=== PATIENT | male | born 1975 ===

== ENCOUNTER 2021-05-08 12:52 | Observation (INO) | payer SELFPAY ==
[~2021-05-08] VITALS: Ht 165 cm; Wt 82.1 kg
--- NOTE | 2021-05-08 14:49 | ED GI ---
General Chief Complaint: Abdominal/GI Problems Stated Complaint: UNABLE TO URINATE/CONSTIPATED Source of Information: Patient Exam Limitations: No Limitations (SONIYA SALEEM APRN) History of Present Illness Date Seen by Provider: May 08, 2021 Time Seen by Provider: 14:48 Initial Comments To ER with reports of inability to urinate or have a bowel movement. Constipated since Sunday of this week. Also has left lower abdominal pain. Timing/Duration: 1-2 Days Severity/Quality: Moderate Location: LLQ Radiation: No Radiation Activities at Onset: None Associated Symptoms: Denies Symptoms (SONIYA SALEEM APRN) Allergies and Home Medications Allergies Coded Allergies: No Known Drug Allergies (Unverified , 05/08/21) Patient Home Medication List Home Medication List Reviewed: Yes (SONIYA SALEEM APRN) No Active Prescriptions or Reported Meds Review of Systems Review of Systems Constitutional: see HPI EENTM: No Symptoms Reported Respiratory: No Symptoms Reported Cardiovascular: No Symptoms Reported Gastrointestinal: See HPI Genitourinary: No Symptoms Reported Musculoskeletal: no symptoms reported Skin: no symptoms reported Psychiatric/Neurological: No Symptoms Reported Endocrine: No Symptoms Reported Hematologic/Lymphatic: No Symptoms Reported (SONIYA SALEEM APRN) Physical Exam Vital Signs Vital Signs - First Documented 05/08/21 14:46 Temp 36.3 Pulse 98 Resp 18 B/P (MAP) 138/80 (99) Pulse Ox 97 (CHARLYLIZ K DO) Vital Signs Capillary Refill : (SONIYA SALEEM APRN) Height/Weight/BMI Height: '" Weight: lbs. oz. kg; BMI Method: General Appearance: WD/WN, no apparent distress Neck: non-tender, full range of motion Respiratory: no respiratory distress, no accessory muscle use Cardiovascular: regular rate, rhythm, no murmur Gastrointestinal: normal bowel sounds, non tender, soft Extremities: normal range of motion, non-tender, normal inspection Neurologic/Psychiatric: alert, normal mood/affect, oriented x 3 Skin: normal color, warm/dry (SONIYA SALEEM APRN) Progress/Results/Core Measures Results/Orders Lab Results Laboratory Tests Test 05/08/21 15:26 05/08/21 15:28 Range/Units White Blood Count 15.0 H 4.3-11.0 10^3/uL Red Blood Count 4.61 4.30-5.52 10^6/uL Hemoglobin 13.8 13.3-17.7 g/dL Hematocrit 41 40-54 % Mean Corpuscular Volume 88 80-99 fL Mean Corpuscular Hemoglobin 30 25-34 pg Mean Corpuscular Hemoglobin Concent 34 32-36 g/dL Red Cell Distribution Width 11.6 10.0-14.5 % Platelet Count 198 130-400 10^3/uL Mean Platelet Volume 11.5 9.0-12.2 fL Immature Granulocyte % (Auto) 1 % Neutrophils (%) (Auto) 85 H 42-75 % Lymphocytes (%) (Auto) 6 L 12-44 % Monocytes (%) (Auto) 8 0-12 % Eosinophils (%) (Auto) 1 0-10 % Basophils (%) (Auto) 0 0-10 % Neutrophils # (Auto) 12.8 H 1.8-7.8 10^3/uL Lymphocytes # (Auto) 0.8 L 1.0-4.0 10^3/uL Monocytes # (Auto) 1.2 H 0.0-1.0 10^3/uL Eosinophils # (Auto) 0.1 0.0-0.3 10^3/uL Basophils # (Auto) 0.0 0.0-0.1 10^3/uL Immature Granulocyte # (Auto) 0.1 0.0-0.1 10^3/uL Neutrophils % (Manual) 90 % Lymphocytes % (Manual) 4 % Monocytes % (Manual) 5 % Eosinophils % (Manual) 0 % Basophils % (Manual) 0 % Band Neutrophils 1 % Blood Morphology Comment NORMAL Sodium Level 129 L 135-145 MMOL/L Potassium Level 4.0 3.6-5.0 MMOL/L Chloride Level 97 L 98-107 MMOL/L Carbon Dioxide Level 22 21-32 MMOL/L Anion Gap 10 5-14 MMOL/L Blood Urea Nitrogen 8 7-18 MG/DL Creatinine 0.98 0.60-1.30 MG/DL Estimat Glomerular Filtration Rate 83 BUN/Creatinine Ratio 8 Glucose Level 606 *H 70-105 MG/DL Mean Blood Glucose 344 H <=126 mg/dL Hemoglobin A1c 13.6 H 4.0-5.6 % Calcium Level 8.7 8.5-10.1 MG/DL Urine Color YELLOW Urine Clarity CLEAR Urine pH 6.5 5-9 Urine Specific [place] <=1.005 1.016-1.022 Urine Protein 1+ H NEGATIVE Urine Glucose (UA) 3+ H NEGATIVE Urine Ketones NEGATIVE NEGATIVE Urine Nitrite NEGATIVE NEGATIVE Urine Bilirubin NEGATIVE NEGATIVE Urine Urobilinogen 0.2 < = 1.0 MG/DL Urine Leukocyte Esterase NEGATIVE NEGATIVE Urine RBC (Auto) 1+ H NEGATIVE Urine RBC 2-5 H /HPF Urine WBC NONE /HPF Urine Crystals NONE /LPF Urine Bacteria NEGATIVE /HPF Urine Casts NONE /LPF Urine Mucus NEGATIVE /LPF Urine Culture Indicated NO (LIZ PARKS DO) Vital Signs/I&O 05/08/21 14:46 Temp 36.3 Pulse 98 Resp 18 B/P (MAP) 138/80 (99) Pulse Ox 97 (LIZ PARKS DO) Departure Communication (Admissions) Family Conversation [id number] has a normal appearance without hemorrhoid no induration or erythema or fluctuance. There is some fat stranding on CT to this location though. The perineum is also without induration or erythema and nontender to palpation. Scrotum is normal without crepitus or induration of the scrotal skin. Certainly no Xiomara's gangrene. He does actually report that he has had some fevers for the past 2 to 3 days and has been dizzy for the past week. He has never been told that he is diabetic. We left a Florez catheter in place and we have about 1300 mL of clear yellow urine out without clot or apparent hematuria. NAME: RAFIQ GARCIA [facility] REC#: [id number] PT STATUS: REG ER : 1975 PHYSICIAN: SONIYA SALEEM APRN ADMIT DATE: 05/08/21/ER Signed Date of Exam:05/08/21 CT ABDOMEN/PELVIS WO EXAMINATION: CT abdomen and pelvis without contrast. TECHNIQUE: Multiple contiguous axial images were obtained through the abdomen and pelvis without the use of intravenous contrast. All CT scans use one or more of the following dose optimizing techniques: automated exposure control, MA and/or KvP adjustment based on patient size and exam type or iterative reconstruction. HISTORY: Left lower abdominal pain, rectal pain, COMPARISON: None available. FINDINGS: Lung bases: Atelectasis or groundglass opacities in the lung bases. Solid organs: The liver is normal. The gallbladder is surgically absent. There is no biliary ductal dilation. Pancreas is normal. Spleen is normal. Adrenal glands are normal. The kidneys are normal without visualized calculus or hydronephrosis. Bowel: The stomach and small bowel are normal without obstruction. The colon and appendix are normal. Peritoneum: There is no intraperitoneal free fluid or free air. No suspicious lymphadenopathy. Vasculature: Normal without aneurysm. Musculoskeletal: No suspicious osseous lesion or compression fracture. There is mild fat stranding seen within the perineum. Loculated fluid collection. Pelvis: The prostate gland is normal. The urinary bladder is distended. IMPRESSION: 1. No acute abnormality in the abdomen or pelvis. 2. Mild fat stranding within the perineum which can be seen with infectious process or cellulitis. No loculated fluid collection. 3. Atelectasis or atypical infection within the lung bases. Dictated by: Dictated on workstation # [id number] Dict: 05/08/21 1512 Trans: 05/08/21 1523 [facility] [id number] Interpreted by: YANETH SMITH DO Electronically signed by: YANETH SMITH DO 05/08/21 1523 (SONIYA SALEEM APRN) Impression Primary Impression: Proctitis Additional Impression: Diabetes mellitus, new onset Disposition: ADMITTED INPATIENT Condition: Stable Admissions Decision to Admit Reason: Admit from ER (General) Decision to Admit/Date: May 08, 2021 Time/Decision to Admit Time: 16:16 (SONIYA SALEEM APRN) Departure-Patient Inst. Referrals: NO,LOCAL PHYSICIAN (PCP/Family) Primary Care Physician Scripts No Active Prescriptions or Reported Meds ATTENDING PHYSICIAN NOTE: I WAS PHYSICALLY PRESENT ER PHYSICIAN WHEN THIS PATIENT WAS IN ER, BUT I WAS NOT INVOLVED IN ANY DECISION MAKING OR ANY CARE OF THIS PATIENT. (LIZ PARKS DO) SONIYA SALEEM APRN May 08, 2021 14:49 LIZ PARKS DO May 11, 2021 04:22
[2021-05-08] MEDS ORDERED: LIDOCAINE UROJET 2% GEL 10 ML PKG TOP ONE (15:15)
[2021-05-08] MEDS ORDERED: LIDOCAINE UROJET 2% GEL 10 ML PKG ONE (15:17)
--- NOTE | 2021-05-08 15:20 | Diagnostic Imaging Report ---
EXAMINATION: CT abdomen and pelvis without contrast. TECHNIQUE: Multiple contiguous axial images were obtained through the abdomen and pelvis without the use of intravenous contrast. All CT scans use one or more of the following dose optimizing techniques: automated exposure control, MA and/or KvP adjustment based on patient size and exam type or iterative reconstruction. HISTORY: Left lower abdominal pain, rectal pain, COMPARISON: None available. FINDINGS: Lung bases: Atelectasis or groundglass opacities in the lung bases. Solid organs: The liver is normal. The gallbladder is surgically absent. There is no biliary ductal dilation. Pancreas is normal. Spleen is normal. Adrenal glands are normal. The kidneys are normal without visualized calculus or hydronephrosis. Bowel: The stomach and small bowel are normal without obstruction. The colon and appendix are normal. Peritoneum: There is no intraperitoneal free fluid or free air. No suspicious lymphadenopathy. Vasculature: Normal without aneurysm. Musculoskeletal: No suspicious osseous lesion or compression fracture. There is mild fat stranding seen within the perineum. Loculated fluid collection. Pelvis: The prostate gland is normal. The urinary bladder is distended. IMPRESSION: 1. No acute abnormality in the abdomen or pelvis. 2. Mild fat stranding within the perineum which can be seen with infectious process or cellulitis. No loculated fluid collection. 3. Atelectasis or atypical infection within the lung bases. Dictated by: Dictated on workstation # [id number]
[2021-05-08 15:34] LABS: BASOPHILS % (AUTO) 0 % (0-10); EOSINOPHILS # (AUTO) 0.1 10^3/uL (0.0-0.3); EOSINOPHILS % (AUTO) 1 % (0-10); HEMATOCRIT 41 % (40-54); HEMOGLOBIN 13.8 g/dL (13.3-17.7); LYMPHOCYTES # (AUTO) 0.8 10^3/uL (1.0-4.0); LYMPHOCYTES % (AUTO) 6 % (12-44); MEAN CORPUSCULAR HEMOGLOBIN 30 pg (25-34); MEAN CORPUSCULAR HGB CONC 34 g/dL (32-36); MEAN CORPUSCULAR VOLUME 88 fL (80-99); MEAN PLATELET VOLUME 11.5 fL (9.0-12.2); MONOCYTES # (AUTO) 1.2 10^3/uL (0.0-1.0); MONOCYTES % (AUTO) 8 % (0-12); NEUTROPHILS # (AUTO) 12.8 10^3/uL (1.8-7.8); NEUTROPHILS % (AUTO) 85 % (42-75); PLATELET COUNT 198 10^3/uL (130-400)
[2021-05-08 15:36] LABS: BILIRUBIN,URINE NEGATIVE (NEGATIVE); CLARITY,URINE CLEAR; COLOR,URINE YELLOW; GLUCOSE, URINE (UA) 3+ (NEGATIVE); KETONES,URINE NEGATIVE (NEGATIVE); LEUKOCYTE ESTERASE ,URINE NEGATIVE (NEGATIVE); NITRITE,URINE NEGATIVE (NEGATIVE); PH,URINE 6.5 (5-9); PROTEIN,URINE 1+ (NEGATIVE)
[2021-05-08 15:43] LABS: BACTERIA,URINE NEGATIVE /HPF
[2021-05-08 15:44] LABS: CALCIUM 8.7 MG/DL (8.5-10.1)
[2021-05-08 15:48] LABS: CREATININE SERUM 0.98 MG/DL (0.60-1.30)
[2021-05-08] MEDS ORDERED: inSUlin (REGULAR) HUMAN 1 UNIT/0.01 ML (CHARGE PER UNIT) IV ONE (16:30)
[2021-05-08] MEDS ORDERED: PIPERACILLIN SODIUM/TAZOBACTAM 4.5 GM in NS (IVPB) 100 ML IV ONE (16:30)
[2021-05-08 16:42] LABS: BAND NEUTROPHILS 1 %; BASOPHILS % (MANUAL) 0 %; EOSINOPHILS % (MANUAL) 0 %; LYMPHOCYTES % (MANUAL) 4 %; MONOCYTES % (MANUAL) 5 %; NEUTROPHILS % (MANUAL) 90 %; RBC MORPH NORMAL
[2021-05-08] MEDS: LACTATED RINGERS 1,000 ML IV SCH ×2 (16:58→19:00)
[2021-05-08 18:14] VITALS: BP 157/100
[2021-05-08 20:12] VITALS: BP 136/80
[2021-05-08] MEDS: HYDROcodone/APAP 5 MG/325 MG (LORTAB) TAB PO PRN (20:39)
[2021-05-08] MEDS ORDERED: ONDANSETRON 4 MG/2 ML (SDV) Z0FRAN IV PRN (20:45)
[2021-05-08] MEDS: inSUlin ASPART (NovoLOG) 1 UNIT/0.01 ML (CHARGE PER UNIT) SC SCH (21:31)
[2021-05-08] MEDS: PIPERACILLIN SODIUM/TAZOBACTAM 4.5 GM in NS (IVPB) 100 ML IV SCH (22:17)
[2021-05-09] VITALS (7 sets, daily range): BP systolic 95–140; BP diastolic 59–90
[2021-05-09] MEDS: PIPERACILLIN SODIUM/TAZOBACTAM 4.5 GM in NS (IVPB) 100 ML IV SCH ×3 (06:13→21:23)
[2021-05-09] MEDS: metFORMIN 500 MG (GLUCOPHAGE) TAB PO SCH (06:13)
[2021-05-09] MEDS: inSUlin ASPART (NovoLOG) 1 UNIT/0.01 ML (CHARGE PER UNIT) SC SCH ×4 (06:13→21:22)
--- NOTE | 2021-05-09 07:53 | Consultation - Surgery ---
JAIEDUINARABELLA ENCARNACION 05/09/21 0753: History of Present Illness History of Present Illness Patient Consulted On(kenna/time) 05/09/21 07:44 Date Seen by Provider: May 09, 2021 Time Seen by Provider: 07:13 History of Present Illness Pt is primarily Sami speaking. 46yoHM who presents to the ED last night with gradual on set of lower abdominal pain and lack of urination. He states that nothing seems to make it better or worse. He does confirm having a fever for the last few days along with dizzy spells. He was previously unaware of his DM dx, he arrived in the ER with glucose of 606 Pt report having BM x2 yesterday - non-bloody His urinary catheter is in place and produces yellow - non-blood, non-purulent urine. He denies any N/V. Allergies and Home Medications Allergies Coded Allergies: No Known Drug Allergies (Unverified , 05/08/21) Past Ijaimzo-Rczpus-Lirpyu Hx Patient Social History Alcohol Use?: Yes Have you traveled recently?: No Surgeries Surgeries: Adenoidectomy Family Medical History Significant Family History: No Pertinent Family Hx Review of Systems-General Constitutional: No chills, No diaphoresis, No fever, No malaise EENTM: No hearing loss, No ear pain, No vision loss, No hoarseness, No mouth pain Respiratory: No cough, No dyspnea on exertion, No orthopnea, No short of breath Cardiovascular: No chest pain, No edema, No Hx of Intervention Gastrointestinal: No abdominal pain, No diarrhea, No hematemesis, No melena, No nausea, No vomiting Genitourinary: No decreased output, No discharge, No dysuria, No pain Musculoskeletal: No back pain, No joint pain, No muscle pain, No neck pain Skin: No change in color, No change in hair/nails, No dryness, No pruritus, No rash Psychiatric/Neurological: Denies Headache, Denies Numbness, Denies Tingling, Denies Tremors Physical Exam-General Problems Physical Exam Vital Signs Vital Signs - First Documented 05/08/21 05/08/21 14:46 18:14 Temp 36.3 Pulse 98 Resp 18 B/P (MAP) 138/80 (99) Pulse Ox 97 O2 Delivery Room Air Capillary Refill : Less Than 3 Seconds General Appearance: WD/WN, no apparent distress Eyes: Bilateral Eye PERRL, Bilateral Eye EOMI HEENT: PERRL/EOMI, pharynx normal Neck: non-tender, full range of motion, supple Respiratory: chest non-tender, lungs clear, normal breath sounds, no respiratory distress, no accessory muscle use Cardiovascular: regular rate, rhythm, no edema, no gallop, no murmur Peripheral Pulses: 2+ Radial Pulses (R), 2+ Radial Pulses (L) Gastrointestinal: normal bowel sounds, non tender, soft, no organomegaly, no pulsatile mass Back: no CVA tenderness, no vertebral tenderness Extremities: normal range of motion, no pedal edema, no calf tenderness, normal capillary refill Neurologic/Psychiatric: electronics instructor II-XII nml as tested, alert, normal mood/affect Reflexes: 2+ Bicep (R), 2+ Bicep (L) Skin: normal color, warm/dry Lymphatic: no adenopathy (Cervical and axillary) Data Review Labs Laboratory Tests 05/08/21 15:26: White Blood Count 15.0H, Red Blood Count 4.61, Hemoglobin 13.8, Hematocrit 41, Mean Corpuscular Volume 88, Mean Corpuscular Hemoglobin 30, Mean Corpuscular Hemoglobin Concent 34, Red Cell Distribution Width 11.6, Platelet Count 198, Mean Platelet Volume 11.5, Immature Granulocyte % (Auto) 1, Neutrophils (%) (Auto) 85H, Lymphocytes (%) (Auto) 6L, Monocytes (%) (Auto) 8, Eosinophils (%) (Auto) 1, Basophils (%) (Auto) 0, Neutrophils # (Auto) 12.8H, Lymphocytes # (Auto) 0.8L, Monocytes # (Auto) 1.2H, Eosinophils # (Auto) 0.1, Basophils # (Auto) 0.0, Immature Granulocyte # (Auto) 0.1, Neutrophils % (Manual) 90, Lymphocytes % (Manual) 4, Monocytes % (Manual) 5, Eosinophils % (Manual) 0, Basophils % (Manual) 0, Band Neutrophils 1, Blood Morphology Comment NORMAL, Sodium Level 129L, Potassium Level 4.0, Chloride Level 97L, Carbon Dioxide Level 22, Anion Gap 10, Blood Urea Nitrogen 8, Creatinine 0.98, Estimat Glomerular Filtration Rate 83, BUN/Creatinine Ratio 8, Glucose Level 606*H, Calcium Level 8.7 05/08/21 15:28: Urine Color YELLOW, Urine Clarity CLEAR, Urine pH 6.5, Urine Specific [place] <=1.005, Urine Protein 1+H, Urine Glucose (UA) 3+H, Urine Ketones NEGATIVE, Urine Nitrite NEGATIVE, Urine Bilirubin NEGATIVE, Urine Urobilinogen 0.2, Urine Leukocyte Esterase NEGATIVE, Urine RBC (Auto) 1+H, Urine RBC 2-5H, Urine WBC NONE, Urine Crystals NONE, Urine Bacteria NEGATIVE, Urine Casts NONE, Urine Mucus NEGATIVE, Urine Culture Indicated NO 05/08/21 17:46: Glucometer 211H 05/08/21 21:19: Glucometer 293H 05/09/21 06:07: Glucometer 212H Radiology [facility] [place] [place] NAME: RAFIQ GARCIA [facility] REC#: [id number] PT STATUS: REG ER : 1975 PHYSICIAN: SONIYA SALEEM APRN ADMIT DATE: 05/08/21/ER Signed Date of Exam:05/08/21 CT ABDOMEN/PELVIS WO EXAMINATION: CT abdomen and pelvis without contrast. TECHNIQUE: Multiple contiguous axial images were obtained through the abdomen and pelvis without the use of intravenous contrast. All CT scans use one or more of the following dose optimizing techniques: automated exposure control, MA and/or KvP adjustment based on patient size and exam type or iterative reconstruction. HISTORY: Left lower abdominal pain, rectal pain, COMPARISON: None available. FINDINGS: Lung bases: Atelectasis or groundglass opacities in the lung bases. Solid organs: The liver is normal. The gallbladder is surgically absent. There is no biliary ductal dilation. Pancreas is normal. Spleen is normal. Adrenal glands are normal. The kidneys are normal without visualized calculus or hydronephrosis. Bowel: The stomach and small bowel are normal without obstruction. The colon and appendix are normal. Peritoneum: There is no intraperitoneal free fluid or free air. No suspicious lymphadenopathy. Vasculature: Normal without aneurysm. Musculoskeletal: No suspicious osseous lesion or compression fracture. There is mild fat stranding seen within the perineum. Loculated fluid collection. Pelvis: The prostate gland is normal. The urinary bladder is distended. IMPRESSION: 1. No acute abnormality in the abdomen or pelvis. 2. Mild fat stranding within the perineum which can be seen with infectious process or cellulitis. No loculated fluid collection. 3. Atelectasis or atypical infection within the lung bases. Dictated by: Dictated on workstation # [id number] Dict: 05/08/21 1512 Trans: 05/08/[address] [facility] [id number] Interpreted by: YANETH SMITH DO Electronically signed by: YANETH SMITH DO 05/08/21 1523 Assessment/Plan Assessment/Plan Assessment/Plan New onset T2DM Constipation Rectal pain Urinary retention management and education regarding new T2DM diagnosis Fluid resuscitation and empiric abx Conservative management at this time. Pt is urinating and passing BM without alarm signs to suggest surgical intervention is indicated. CT is non-contributory except for perineal fat stranding with is consistent with inflammation. Plan for outpatient colonoscopy NEVIN BOWMAN DO 05/09/21 1357: History of Present Illness History of Present Illness History of Present Illness Patient is a 46-year-old male who presented to emergency department with inability to urinate and also some lower abdominal pain. Patient states he is having difficulty urinating and having bowel movement. Patient's had fever for couple of days. Patient states that nothing was seems to make things better. Nothing was seems to make things worse that he knows of. Patient has never had any issues with bowels or urinating before. He had 2 bowel movements yesterday that were nonbloody. He was found to have elevated blood glucose but reports he is not a diabetic. Patient states that his pain was a 10 out of 10 when he in itially came in now he states is significantly better and he rates it at a 4 out of 10. He had a Good placed. He currently states he is feeling significantly better. He is on Zosyn. He had a CT scan demonstrating faster and around the perineum consistent with either infectious or cellulitis. Allergies and Home Medications Allergies Coded Allergies: No Known Drug Allergies (Unverified , 05/08/21) Patient Home Medication List Home Medication List Reviewed: Yes Past Csodubl-Zzonaw-Wyqeom Hx Reviewed Nursing Assessment Reviewed/Agree w Nursing PMH: Yes Family Medical History Significant Family History: No Pertinent Family Hx Review of Systems-General Constitutional: No chills; fever; No malaise EENTM: No hearing loss, No ear pain Respiratory: No cough, No short of breath Cardiovascular: No chest pain, No Hx of Intervention Gastrointestinal: abdominal pain, constipation; No nausea, No vomiting Genitourinary: decreased output; No dysuria Musculoskeletal: No back pain, No joint pain Skin: No change in color, No change in hair/nails, No pruritus, No rash Psychiatric/Neurological: Denies Anxiety, Denies Depressed, Denies Emotional Problems All Other Systems Reviewed Negative Unless Noted: Yes (Negative excepted noted.) Physical Exam-General Problems Physical Exam General Appearance: WD/WN, no apparent distress HEENT: PERRL/EOMI, normal ENT inspection Neck: non-tender, supple Respiratory: chest non-tender, no respiratory distress, no accessory muscle use Cardiovascular: regular rate, rhythm, no JVD Gastrointestinal: non tender, soft Rectal: deferred Genital/Rectal: normal genital exam, other (No evidence of foreign years gangrene or any cellulitis. No palpable fluid collections or tenderness on palpation) Back: no CVA tenderness, no vertebral tenderness Extremities: normal range of motion, normal inspection Neurologic/Psychiatric: alert, normal mood/affect, oriented x 3 Skin: normal color, warm/dry Lymphatic: no adenopathy (Cervical and axillary) Assessment/Plan Assessment/Plan Assessment/Plan New onset T2DM Constipation Rectal pain Urinary retention management and education regarding new T2DM diagnosis Fluid resuscitation and empiric abx Conservative management at this time. Pt with good and passing BM without alarm signs to suggest surgical intervention is indicated. CT is non-contributory except for perineal fat stranding with is consistent with inflammation. Plan for outpatient colonoscopy 8 weeks after resolved. Continue Zosyn Supervisory-Addendum Brief Verification & Attestation Participated in pt care: history, MDM, physical Personally performed: exam, history, MDM, supervision of care Care discussed with: Medical Student Procedures: n/a Results interpretation: Verified all documentation Verification and Attestation of Medical Student E/M Service A medical student performed and documented this service in my presence. I reviewed and verified all information documented by the medical student and made modifications to such information, when appropriate. I personally performed the physical exam and medical decision making. Nevin Bowman, May 09, 2021,13:58 ARABELAL HOLLEY May 09, 2021 07:53 NEVIN BOWMAN DO May 09, 2021 13:57
[2021-05-09] MEDS: LACTATED RINGERS 1,000 ML IV SCH ×4 (07:57→21:22)
[2021-05-09] MEDS: HYDROcodone/APAP 5 MG/325 MG (LORTAB) TAB PO PRN (08:02)
[2021-05-09 09:18] LABS: CALCIUM 8.2 MG/DL (8.5-10.1); CREATININE SERUM 0.85 MG/DL (0.60-1.30); POTASSIUM 3.7 MMOL/L (3.6-5.0)
[2021-05-09] MEDS ORDERED: PIPERACILLIN/TAZO 4.5 GM VIAL (ZOSYN) IV ONE (13:59)
--- NOTE | 2021-05-09 22:48 | History & Physical-Hospitalist ---
History of Present Illness HPI/Chief Complaint Alexander Pedro is a 46 year old male with no known PMH who presented with urinary retention. He was having abdominal pain. He has also had constipation and rectal pain. He denies penile discharge. He has had dysuria. He denies blood in his stools. He denies fevers. He denies shortness of breath and cough. He denies chest pain. He has no history of diabetes. He does not take any medications regularly. Source: patient Exam Limitations: no limitations Date Seen 05/09/21 Time Seen by a Provider: 11:55 Attending Physician Lizbeth Davis MD PCP No,Local Physician Referring Physician Date of Admission May 08, 2021 at 16:32 Home Medications & Allergies Home Medications Reviewed patient Home Medication Reconciliation performed by pharmacy medication reconciliations materials engineering technician and/or nursing. Patients Allergies have been reviewed. Allergies Allergies Coded Allergies No Known Drug Allergies (Zorhowlxto10/26/21) Past Ennfapa-Tsjpzl-Wscvii Hx Patient Social History Tobacco Use?: No Use of E-Cig and/or Vaping dev: No Substance use?: No Alcohol Use?: Yes Alcohol type: Beer Alcohol Frequency: Daily Pt feels they are or have been: No Immunizations Up To Date First/Initial COVID19 Vaccinat: N/A Tetanus Booster (TDap): Unknown Hepatitis A: No Hepatitis B: No Current Status Advance Directives: No Communicates: Verbally Primary Language: Tajik Preferred Spoken Language: Tajik Is interpretation needed?: Yes Implanted or Applied Medical D: None Past Medical History Surgeries: Adenoidectomy Family Medical History No Pertinent Family Hx Review of Systems Constitutional: no symptoms reported EENTM: no symptoms reported Respiratory: no symptoms reported Cardiovascular: no symptoms reported Gastrointestinal: abdominal pain Genitourinary: decreased output; No discharge; dysuria, hesitancy, incontinence Musculoskeletal: no symptoms reported Skin: no symptoms reported Psychiatric/Neurological: No Symptoms Reported Physical Exam Physical Exam Vital Signs Vital Signs - First Documented 05/08/21 05/08/21 14:46 18:14 Temp 36.3 Pulse 98 Resp 18 B/P (MAP) 138/80 (99) Pulse Ox 97 O2 Delivery Room Air Capillary Refill : Less Than 3 Seconds Height, Weight, BMI Height: '" Weight: lbs. oz. kg; 25.96 BMI Method: General Appearance: No Apparent Distress, Obese HEENT: PERRL/EOMI, Pharynx Normal Neck: Normal Inspection, Supple Respiratory: Lungs Clear, Normal Breath Sounds, No Respiratory Distress Cardiovascular: Regular Rate, Rhythm, No Edema, No Murmur Gastrointestinal: Normal Bowel Sounds, Non Tender, Soft Extremity: Normal Inspection, Non Tender, No Pedal Edema Neurologic/Psychiatric: Alert, No Motor/Sensory Deficits, Normal Mood/Affect Skin: Normal Color, Warm/Dry Results Results/Procedures Labs Laboratory Tests 05/08/21 15:26 05/09/21 08:59 Patient resulted labs reviewed. Imaging: Reviewed Imaging Report Assessment/Plan Admission Diagnosis New onset diabetes mellitus Admission Status: Observation Assessment and Plan New onset diabetes mellitus T2DM with hyperglycemia Not in DKA/HHS Sliding scale insulin Levemir Metformin A1C pending Urinary retention BPH Florez in place Flomax Consult urology Proctitis Zosyn Surgery consulted Planning for outpatient colonoscopy Diagnosis/Problems Diagnosis/Problems (1) Diabetes mellitus, new onset Status: Acute (2) Proctitis Status: Acute (3) Urinary retention due to benign prostatic hyperplasia Status: Acute LIZBETH DAVIS MD May 09, 2021 22:48
[2021-05-09] MEDS: TAMSULOSIN 0.4 MG (FLOMAX) CAP PO SCH (23:30)
[2021-05-10 04:40] VITALS: BP 124/81
[2021-05-10] MEDS: LACTATED RINGERS 1,000 ML IV SCH ×3 (05:39→21:38)
[2021-05-10] MEDS: metFORMIN 500 MG (GLUCOPHAGE) TAB PO SCH ×2 (05:40→17:51)
[2021-05-10] MEDS: PIPERACILLIN SODIUM/TAZOBACTAM 4.5 GM in NS (IVPB) 100 ML IV SCH ×3 (05:40→21:38)
[2021-05-10] MEDS: inSUlin ASPART (NovoLOG) 1 UNIT/0.01 ML (CHARGE PER UNIT) SC SCH ×4 (05:42→21:37)
[2021-05-10 06:10] LABS: POTASSIUM 3.2 MMOL/L (3.6-5.0)
[2021-05-10 06:11] LABS: CALCIUM 8.4 MG/DL (8.5-10.1)
[2021-05-10 06:15] LABS: CREATININE SERUM 0.73 MG/DL (0.60-1.30)
--- NOTE | 2021-05-10 07:43 | Progress Note - Surgery ---
ARABELLA HOLLEY 05/10/21 0743: Subjective Date Seen by a Provider: May 10, 2021 Time Seen by a Provider: 06:51 Subjective/Events-last exam Pt is doing well. He does report minimal pain from his rectum, which is unchanged. He states his last BM was Sunday (05/08/21) and was non-bloody. He does not have any urinary pain and Good cath remains in place, clear yellow urine is flowing freely. Pt has been started on flowmax. Review of Systems General: No Chills, No Night Sweats, No Fatigue; Appetite HEENT: No Head Aches, No Eye Pain, No Ear Pain, No Dysphasia, No Sore Throat Pulmonary: No Dyspnea, No Cough, No Pleuritic Chest Pain Cardiovascular: No: Chest Pain, Palpitations, Orthopnea Gastrointestinal: No: Nausea, Vomiting, Abdominal Pain, Diarrhea, Constipation, Melena, Hematochezia Genitourinary: No Dysuria, No Frequency, No Incontinence, No Retention Musculoskeletal: No: neck pain, shoulder pain, back pain, hand pain, leg pain, foot pain Neurological: No: Weakness, Numbness, Change in speech, Seizures Objective Exam Vital Signs Date Time Temp Pulse Resp B/P (MAP) Pulse Ox O2 Delivery O2 Flow Rate FiO2 05/10/21 04:40 36.6 94 16 124/81 (95) 97 Room Air 05/09/21 23:51 36.7 89 16 140/90 (107) 99 Room Air 05/09/21 20:08 37.2 97 16 138/82 (100) 97 Room Air 05/09/21 19:51 Room Air 05/09/21 16:00 37.0 102 16 137/86 (103) 98 Room Air 05/09/21 12:00 37.4 91 18 134/62 (86) 96 Room Air 05/09/21 08:06 97 Room Air 05/09/21 08:00 37.8 107 18 117/59 (78) Room Air I & O 05/10/21 07:00 Intake Total 2104 ml Output Total 3500 ml Balance -1396 ml Capillary Refill : Less Than 3 Seconds General Appearance: No Apparent Distress, WD/WN, Obese HEENT: PERRL/EOMI, Pharynx Normal Neck: Full Range of Motion, Non Tender, Supple Respiratory: Chest Non Tender, Lungs Clear, Normal Breath Sounds, No Accessory Muscle Use, No Respiratory Distress Cardiovascular: Regular Rate, Rhythm, No Edema, No Gallop, No JVD, No Murmur, Normal Peripheral Pulses Peripheral Pulses: 2+ Radial Pulses (R), 2+ Radial Pulses (L) Gastrointestinal: normal bowel sounds, non tender, soft, no organomegaly, no pulsatile mass Extremity: Normal Capillary Refill, Normal Inspection, Non Tender, No Calf Tenderness, No Pedal Edema Neurologic/Psychiatric: Alert, Oriented x3, No Motor/Sensory Deficits, Normal Mood/Affect Skin: Normal Color, Warm/Dry Lymphatic: No Adenopathy (cervical and axillary) Results Lab Laboratory Tests 05/09/21 08:59: Sodium Level 131L, Potassium Level 3.7, Chloride Level 99, Carbon Dioxide Level 22, Anion Gap 10, Blood Urea Nitrogen 10, Creatinine 0.85, Estimat Glomerular Filtration Rate 97, BUN/Creatinine Ratio 12, Glucose Level 246H, Calcium Level 8.2L 05/09/21 11:06: Glucometer 390H 05/09/21 15:31: Glucometer 216H 05/09/21 20:26: Glucometer 224H 05/10/21 05:40: Sodium Level 136, Potassium Level 3.2L, Chloride Level 102, Carbon Dioxide Level 24, Anion Gap 10, Blood Urea Nitrogen 9, Creatinine 0.73, Estimat Glomerular Filtration Rate 116, BUN/Creatinine Ratio 12, Glucose Level 92, Calcium Level 8.4L, Triglycerides Level 89, Cholesterol Level 150, LDL Cholesterol Direct 84, VLDL Cholesterol 18, HDL Cholesterol 51 05/10/21 05:42: Glucometer 90 Assessment/Plan Assessment/Plan Assessment/Plan New onset T2DM Constipation Rectal pain Urinary retention Conservative management at this time. Pt education regarding new T2DM diagnosis Pt with good and passing BM without alarm signs - no surgical intervention is planned at this time. CT indicates perineal fat stranding, consistent with inflammation of the rectum - Plan for outpatient colonoscopy 8 weeks after resolved. Continue Flomax. After three days on Flomax, we will give him a trial of voiding. NEVIN BOWMAN DO 05/11/21 0802: Subjective Subjective/Events-last exam Feeling okay. Less pain. Good in place. Tolerating diet. Denies n/v fever sweats chills shortness of breath or chest pain. Objective Exam General Appearance: No Apparent Distress, WD/WN HEENT: PERRL/EOMI, Normal ENT Inspection Neck: Full Range of Motion, Non Tender Respiratory: Chest Non Tender, No Accessory Muscle Use, No Respiratory Distress Cardiovascular: Regular Rate, Rhythm, No JVD Gastrointestinal: non tender, soft Extremity: Normal Capillary Refill, Normal Inspection, Non Tender Neurologic/Psychiatric: Alert, Oriented x3 Skin: Normal Color, Warm/Dry Lymphatic: No Adenopathy (cervical and axillary) Assessment/Plan Assessment/Plan Assessment/Plan New onset T2DM Constipation Rectal pain Urinary retention DM control. Pt with good and passing BM without difficulty CT indicates perineal fat stranding, consistent with inflammation of the rectum - continue abx- Plan for outpatient colonoscopy 8 weeks after resolved. Continue Flomax. After three days on Flomax, trial of voiding. Supervisory-Addendum Brief Verification & Attestation Participated in pt care: history, MDM, physical Personally performed: exam, history, MDM, supervision of care Care discussed with: Medical Student Procedures: n/a Results interpretation: Verified all documentation Verification and Attestation of Medical Student E/M Service A medical student performed and documented this service in my presence. I reviewed and verified all information documented by the medical student and made modifications to such information, when appropriate. I personally performed the physical exam and medical decision making. Nevin Bowman, May 10, 2021,18:02 ARABELLA HOLLEY May 10, 2021 07:43 NEVIN BOWMAN DO May 11, 2021 08:02
[2021-05-10 08:00] VITALS: BP 143/88
[2021-05-10] MEDS: HYDROcodone/APAP 5 MG/325 MG (LORTAB) TAB PO PRN ×2 (10:02→14:10)
--- NOTE | 2021-05-10 13:23 | CONSULTATION REPORT ---
DATE OF SERVICE: 05/10/2021 ATTENDING PHYSICIAN: Dr. Davila and Miller Waterman DO. SUMMARY: A 46-year-old white man admitted with gradual onset of lower abdominal pain, urinary retention, and some fever. Catheter was inserted, draining yellow clear urine. He was seen by Dr. Waterman, general surgery. He had a CT scan essentially negative. He was admitted with the diagnosis of proctitis and was started on Flomax daily. It is hard to communicate with him because of the language barrier; however, I believe he has prostatitis causing retention. IMPRESSION: Prostatitis and urinary retention. PLAN: Bactrim DS b.i.d. Continue Flomax. After three days on Flomax, we will give him a trial of voiding. CC: Lizbeth Giovanni - requested, unable to deliver. Job ID: [id number] DocumentID: [id number] Dictated Date: 05/10/2021 11:13:09 Class 1 Owner Operator Date: 05/10/2021 13:21:52 Dictated By: TRAV MCCARTNEY MD
[2021-05-10 15:01] VITALS: BP 159/88
[2021-05-10] MEDS: TRIM/SULFAMETH 160/800 (SEPTRA DS) TAB PO SCH (17:51)
[2021-05-10] MEDS: TAMSULOSIN 0.4 MG (FLOMAX) CAP PO SCH (17:52)
--- NOTE | 2021-05-10 17:58 | Progress Note - Hospitalist ---
Subjective HPI/CC On Admission Date Seen by Provider: May 10, 2021 Time Seen by Provider: 11:15 Alexander Pedro is a 46 year old male with no known PMH who presented with urinary retention. He was having abdominal pain. He has also had constipation and rectal pain. He denies penile discharge. He has had dysuria. He denies blood in his stools. He denies fevers. He denies shortness of breath and cough. He denies chest pain. He has no history of diabetes. He does not take any medications regularly. Subjective/Events-last exam He continues to have rectal pain. He has been having bowel movements. He denies blood in his stools. Objective Exam Vital Signs Vital Signs Date Time Temp Pulse Resp B/P (MAP) Pulse Ox O2 Delivery O2 Flow Rate FiO2 05/10/21 15:01 37.0 85 18 159/88 (111) 99 Room Air Capillary Refill : Less Than 3 Seconds General Appearance: No Apparent Distress, Obese Respiratory: Lungs Clear, Normal Breath Sounds, No Respiratory Distress Cardiovascular: Regular Rate, Rhythm, No Edema, No Murmur Gastrointestinal: Normal Bowel Sounds, Non Tender, Soft Extremity: Normal Inspection, Non Tender, No Pedal Edema Neurologic/Psychiatric: Alert, No Motor/Sensory Deficits, Normal Mood/Affect Skin: Normal Color, Warm/Dry Results/Procedures Lab Laboratory Tests 05/10/21 05:40 Patient resulted labs reviewed. Imaging: Reviewed Imaging Report Assessment/Plan Assessment and Plan Assess & Plan/Chief Complaint New onset diabetes mellitus T2DM with hyperglycemia Sliding scale insulin Levemir Metformin A1C 13.6% Urinary retention BPH Prostatitis Florez in place Flomax Bactrim Urology following Obesity DVT prophylaxis: Lovenox Diagnosis/Problems Diagnosis/Problems (1) Diabetes mellitus, new onset Status: Acute (2) Proctitis Status: Acute (3) Urinary retention due to benign prostatic hyperplasia Status: Acute CHRISTINE DAVIS MD May 10, 2021 17:57
[2021-05-10] MEDS ORDERED: ENOXAPARIN 40 MG/0.4 ML (LOVENOX) SYR SC SCH (18:00)
[2021-05-10 20:00] VITALS: BP 151/91
[2021-05-11 00:25] VITALS: BP 131/85
[2021-05-11 04:50] VITALS: BP 125/75
[2021-05-11] MEDS: inSUlin ASPART (NovoLOG) 1 UNIT/0.01 ML (CHARGE PER UNIT) SC SCH ×3 (05:39→16:56)
[2021-05-11] MEDS ORDERED: KCL 20 MEQ TAB (K-DUR) PO SCH (06:00)
[2021-05-11] MEDS ORDERED: MAGNESIUM 1 GM/100 ML IVPB 100 ML IV SCH (06:00)
[2021-05-11] MEDS ORDERED: POTASSIUM CL 10MEQ/50ML IVPB 50 ML IV SCH (06:00)
[2021-05-11 06:03] LABS: HEMATOCRIT 39 % (40-54); HEMOGLOBIN 13.3 g/dL (13.3-17.7); MEAN CORPUSCULAR HEMOGLOBIN 30 pg (25-34); MEAN CORPUSCULAR HGB CONC 35 g/dL (32-36); MEAN CORPUSCULAR VOLUME 87 fL (80-99); PLATELET COUNT 201 10^3/uL (130-400); WHITE BLOOD COUNT 5.6 10^3/uL (4.3-11.0)
[2021-05-11 06:22] LABS: POTASSIUM 3.7 MMOL/L (3.6-5.0)
[2021-05-11 06:24] LABS: CALCIUM 8.5 MG/DL (8.5-10.1)
[2021-05-11 06:28] LABS: CREATININE SERUM 0.76 MG/DL (0.60-1.30)
[2021-05-11 06:30] LABS: MAGNESIUM 2.1 MG/DL (1.6-2.4)
[2021-05-11] MEDS: PIPERACILLIN SODIUM/TAZOBACTAM 4.5 GM in NS (IVPB) 100 ML IV SCH (06:44)
[2021-05-11] MEDS: LACTATED RINGERS 1,000 ML IV SCH ×2 (06:44→14:06)
--- NOTE | 2021-05-11 07:17 | Progress Note - Surgery ---
JAIMEAGHANARABELLA 05/11/21 0717: Subjective Date Seen by a Provider: May 11, 2021 Time Seen by a Provider: 06:51 Subjective/Events-last exam Pt is resting comfortably in bed and doing well. States that he still has very mild rectal pain - no BM since Sunday afternoon. also he is urinating without issue via good cath in place, producing clear yellow urine. He was asking about when he could go home - informed the pt that the good cath will be removed tomorrow and he will have the opportunity to demonstrate voiding, after which he can safely be DC. Pt understands and agrees. Also informed pt that [facility] would like him to follow-up in 8wks for a colonoscopy after the current inflamation resolves. Review of Systems General: No Chills, No Night Sweats, No Fatigue, No Malaise; Appetite HEENT: No Head Aches, No Dysphasia, No Sore Throat Pulmonary: No Dyspnea, No Cough, No Pleuritic Chest Pain Cardiovascular: No: Chest Pain, Orthopnea, Lt Headedness Gastrointestinal: No: Nausea, Vomiting, Abdominal Pain, Diarrhea, Constipation, Melena Genitourinary: No Dysuria, No Frequency, No Hematuria Musculoskeletal: No: neck pain, shoulder pain, back pain Neurological: No: Weakness, Numbness, Change in speech, Seizures Objective Exam Vital Signs Date Time Temp Pulse Resp B/P (MAP) Pulse Ox O2 Delivery O2 Flow Rate FiO2 05/11/21 04:50 37.2 90 16 125/75 (92) 95 Room Air 05/11/21 00:25 36.8 85 16 131/85 (100) 95 Room Air 05/10/21 20:00 37.2 95 16 151/91 (111) 93 Room Air 05/10/21 19:37 Room Air 05/10/21 15:01 37.0 85 18 159/88 (111) 99 Room Air 05/10/21 08:00 Room Air 05/10/21 08:00 37.0 91 18 143/88 (106) 95 Room Air I & O 05/11/21 07:00 Intake Total 3110 ml Output Total 4525 ml Balance -1415 ml Capillary Refill : Less Than 3 Seconds General Appearance: No Apparent Distress, WD/WN HEENT: PERRL/EOMI, Pharynx Normal Neck: Full Range of Motion, Non Tender, Supple Respiratory: Chest Non Tender, Lungs Clear, Normal Breath Sounds, No Accessory Muscle Use, No Respiratory Distress Cardiovascular: Regular Rate, Rhythm, No Edema, No Gallop, No Murmur, Normal Peripheral Pulses Peripheral Pulses: 2+ Radial Pulses (R), 2+ Radial Pulses (L) Gastrointestinal: normal bowel sounds, non tender, soft, no organomegaly, no pulsatile mass Extremity: Normal Capillary Refill, Normal Inspection, Non Tender, No Calf Tenderness, No Pedal Edema Neurologic/Psychiatric: Alert, Oriented x3, No Motor/Sensory Deficits, Normal Mood/Affect Skin: Normal Color, Warm/Dry Lymphatic: No Adenopathy (cervical and axillary) Results Lab Laboratory Tests 05/10/21 10:06: Glucometer 111H 05/10/21 11:34: Glucometer 113H 05/10/21 14:32: Glucometer 213H 05/10/21 20:28: Glucometer 288H 05/11/21 05:33: Glucometer 146H 05/11/21 05:52: White Blood Count 5.6, Red Blood Count 4.45, Hemoglobin 13.3, Hematocrit 39L, Mean Corpuscular Volume 87, Mean Corpuscular Hemoglobin 30, Mean Corpuscular Hemoglobin Concent 35, Red Cell Distribution Width 11.5, Platelet Count 201, Mean Platelet Volume 11.0, Sodium Level 137, Potassium Level 3.7, Chloride Level 105, Carbon Dioxide Level 24, Anion Gap 8, Blood Urea Nitrogen 8, Creatinine 0.76, Estimat Glomerular Filtration Rate 111, BUN/Creatinine Ratio 11, Glucose Level 140H, Calcium Level 8.5, Magnesium Level 2.1 Assessment/Plan Assessment/Plan Assessment/Plan New onset T2DM Constipation Rectal pain Urinary retention Pt education regarding new T2DM diagnosis Continue non-surgical conservative management at this time. - Plan for outpatient colonoscopy 8 weeks after current inflammation is resolved. Continue Flomax. After three days (05/12/21) on Flomax, we will give him a trial of voiding. NEVIN BOWMAN DO 05/11/21 0805: Subjective Subjective/Events-last exam Continues to feel well. Minimal rectal pain. Good in place. Denies n/v fever sweats chills shortness of breath or chest pain. Objective Exam General Appearance: No Apparent Distress, WD/WN HEENT: PERRL/EOMI, Normal ENT Inspection Neck: Non Tender, Supple Respiratory: Chest Non Tender, No Accessory Muscle Use, No Respiratory Distress Cardiovascular: Regular Rate, Rhythm, No JVD Gastrointestinal: non tender, soft Extremity: Non Tender Neurologic/Psychiatric: Alert, Oriented x3, No Motor/Sensory Deficits, Normal Mood/Affect Skin: Normal Color, Warm/Dry Lymphatic: No Adenopathy (cervical and axillary) Assessment/Plan Assessment/Plan Assessment/Plan New onset T2DM Constipation Rectal pain Urinary retention Pt education regarding new T2DM diagnosis Continue non-surgical conservative management at this time. On zosyn - Plan for outpatient colonoscopy 8 weeks after current inflammation is resolved. Continue Flomax. After three days (05/12/21) on Flomax, trial of voiding (Urology). Supervisory-Addendum Brief Verification & Attestation Participated in pt care: history, MDM, physical Personally performed: exam, history, MDM, supervision of care Care discussed with: Medical Student Procedures: n/a Results interpretation: Verified all documentation Verification and Attestation of Medical Student E/M Service A medical student performed and documented this service in my presence. I reviewed and verified all information documented by the medical student and made modifications to such information, when appropriate. I personally performed the physical exam and medical decision making. Nevin Bowman, May 11, 2021,08:05 ARABELLA HOLLEY May 11, 2021 07:17 NEVIN BOWMAN DO May 11, 2021 08:05
[2021-05-11 08:00] VITALS: BP 152/83
[2021-05-11] MEDS: TRIM/SULFAMETH 160/800 (SEPTRA DS) TAB PO SCH ×2 (08:52→16:57)
[2021-05-11] MEDS: metFORMIN 500 MG (GLUCOPHAGE) TAB PO SCH ×2 (08:52→16:55)
[2021-05-11 12:00] VITALS: BP 135/77
[2021-05-11] MEDS ORDERED: SULF1TAB38 PO (13:56)
[2021-05-11] MEDS ORDERED: TMSL.4C PO (13:56)
[2021-05-11] MEDS ORDERED: METF-397 PO (13:56)
[2021-05-11 16:20] VITALS: BP 148/89
[2021-05-11] MEDS: TAMSULOSIN 0.4 MG (FLOMAX) CAP PO SCH (16:55)
[2021-05-11 17:08] VITALS: BP 148/89
--- NOTE | 2021-05-11 19:53 | Discharge Summary ---
Discharge Summary Hospital Course Problems/Dx: (1) Diabetes mellitus, new onset Status: Acute (2) Proctitis Status: Acute (3) Urinary retention due to benign prostatic hyperplasia Status: Acute Hospital Course Date of Admission: May 08, 2021 at 16:32 Admission Diagnosis : Family Physician/Provider: No,Local Physician Date of Discharge: 05/11/21 Discharge Diagnosis: [ ] Hospital Course: [ ] Labs and Pending Lab Test: Laboratory Tests 05/10/21 20:28: Glucometer 288H 05/11/21 05:33: Glucometer 146H 05/11/21 05:52: White Blood Count 5.6, Red Blood Count 4.45, Hemoglobin 13.3, Hematocrit 39L, Mean Corpuscular Volume 87, Mean Corpuscular Hemoglobin 30, Mean Corpuscular Hemoglobin Concent 35, Red Cell Distribution Width 11.5, Platelet Count 201, Mean Platelet Volume 11.0, Sodium Level 137, Potassium Level 3.7, Chloride Level 105, Carbon Dioxide Level 24, Anion Gap 8, Blood Urea Nitrogen 8, Creatinine 0.76, Estimat Glomerular Filtration Rate 111, BUN/Creatinine Ratio 11, Glucose Level 140H, Calcium Level 8.5, Magnesium Level 2.1 05/11/21 11:00: Glucometer 199H 05/11/21 15:16: Glucometer 212H Home Meds Active Flomax (Tamsulosin HCl) 0.4 Mg Cap 0.4 Mg PO DAILY@1800 30 Days Metformin HCl 500 Mg Tablet 500 Mg PO BID WITH MEALS 30 Days Bactrim Ds Tablet (Sulfamethoxazole/Trimethoprim) 1 Each Tablet 1 Ea PO BID WITH MEALS 28 Days Discharge Physical Examination Vital Signs Vital Signs Date Time Temp Pulse Resp B/P (MAP) Pulse Ox O2 Delivery O2 Flow Rate FiO2 05/11/21 17:08 36.8 84 18 148/89 96 Room Air Allergies: Coded Allergies: No Known Drug Allergies (Unverified , 05/08/21) Discharge Summary Date of Admission May 08, 2021 at 16:32 Date of Discharge May 11, 2021 at 17:01 Admission Diagnosis New onset diabetes mellitus Discharge Diagnosis New onset diabetes mellitus T2DM with hyperglycemia Sliding scale insulin Levemir Metformin A1C 13.6% Urinary retention BPH Prostatitis Florez in place Flomax Bactrim Urology following Obesity DVT prophylaxis: Lovenox (1) Diabetes mellitus, new onset Status: Acute (2) Proctitis Status: Acute (3) Urinary retention due to benign prostatic hyperplasia Status: Acute CHRISTINE DAVIS MD May 11, 2021 19:53
== END 2021-05-11 17:01 | disposition home or self-care (01) ==
LOC: ER 12:56 → 4TH 16:32
PROVIDERS: ADMIT Internal Medicine; ATTEND Internal Medicine
DX: E11.65 Type 2 diabetes mellitus with hyperglycemia (principal); K62.89 Other specified diseases of anus and rectum; N40.1 Benign prostatic hyperplasia with lower urinary tract symptoms; R33.8 Other retention of urine; E66.9 Obesity, unspecified; K59.00 Constipation, unspecified; Z90.89 Acquired absence of other organs
CPT/HCPCS: 36415; 51702; 74176; 80048; 80061; 81000; 82947; 83036; 83735; 85007; 85027